=== PATIENT | male | born 1990 ===

== ENCOUNTER 2017-09-12 13:12 | Emergency (ER) | payer OTHER ==
[~2017-09-12] VITALS: Ht 167.6 cm; Wt 89.3 kg
[2017-09-12 14:02] VITALS: Ht 167.6 cm; Wt 89.3 kg
[2017-09-12 16:29] VITALS: BP 164/93
== END 2017-09-12 16:29 | disposition home or self-care (01) ==
LOC: ED 13:12
DX: R10.9 Unspecified abdominal pain (principal)